=== PATIENT | female | born 1965 | race Caucasian/White ===

== ENCOUNTER 2019-04-29 05:19 | Observation (INO) | payer BC ==
[2019-04-28 11:25] LABS: BASOPHILS % 0.5 % (0.0-1.0); EOSINOPHILS # (AUTO) 0.2 (0.0-0.4); EOSINOPHILS % 2.2 % (0.0-6.0); HEMATOCRIT 40.4 % (34.2-44.1); HEMOGLOBIN 13.1 g/dL (12.0-16.0); LYMPHOCYTES # (AUTO) 2.7 (1.0-3.2); LYMPHOCYTES % 34.4 % (18.0-39.1); MEAN CORPUSCULAR HGB CONC 32.4 g/dL (31-35); MEAN CORPUSCULAR VOLUME 92.7 fL (81-99); MONOCYTES # (AUTO) 0.6 (0.2-0.8); MONOCYTES % 7.8 % (4.4-11.3); NEUTROPHILS # (AUTO) 4.3 (2.1-6.9); NEUTROPHILS % 54.5 % (38.7-80.0); PLATELET COUNT 315 x10e3/uL (140-360); RED BLOOD COUNT 4.36 x10e6/uL (3.6-5.1); RED CELL DISTRIBUTION WIDTH 11.9 % (11.7-14.4)
[2019-04-28 11:55] LABS: ALANINE AMINOTRANSFERASE 26 IU/L (0-55); ALBUMIN/GLOBULIN RATIO 1.3 (0.8-2.0); ALKALINE PHOSPHATASE 78 IU/L (40-150); ANION GAP 12.1 mmol/L (8-16); BLOOD UREA NITROGEN 13 mg/dL (7-26); BUN/CREATININE RATIO 14 (6-25); CALCIUM 8.9 mg/dL (8.4-10.2); CARBON DIOXIDE 28 mmol/L (22-29); CHLORIDE 104 mmol/L (98-107); CREATININE, SERUM 0.92 mg/dL (0.57-1.11); EST GLOMERULAR FILTRATION RATE > 60 ML/MIN (60-); GLUCOSE 83 mg/dL (74-118); POTASSIUM 4.1 mmol/L (3.5-5.1); SODIUM 140 mmol/L (136-145)
[~2019-04-29] VITALS: Ht 162.6 cm; Wt 75.3 kg
[~2019-04-29 05:19] MED LIST: CALCIUM 500+D1 EACH PO; ONE DAILY COMP1 EACH PO
[2019-04-29] MEDS ORDERED: CEFAZOLIN SOD 1 GM/NS 50ML 100 ML IV ONE (06:37)
[2019-04-29] MEDS ORDERED: BUPIVACAINE 0.25% 30ML SDV INJ ONE ×2 (07:50→09:23)
[2019-04-29] MEDS ORDERED: ESTROGENS CONJUGATED VAGINAL CR 45 GM TUBE PV ONE (07:50)
[2019-04-29] MEDS ORDERED: ACETAMINOPHEN 325 MG TAB PO PRN (10:15)
[2019-04-29] MEDS ORDERED: KETOROLAC TROMETHAMINE 30 MG/ML VIAL IM PRN (10:15)
[2019-04-29] MEDS ORDERED: DIPHENHYDRAMINE HCL 25 MG CAP PO PRN (10:15)
[2019-04-29] MEDS ORDERED: PROMETHAZINE HCL (IM) 25 MG/ML VIAL IV PRN (10:15)
[2019-04-29] MEDS ORDERED: BISACODYL 5 MG TAB EC PO PRN (10:15)
[2019-04-29] MEDS ORDERED: MORPHINE SULFATE INJ 4 MG/ML INJ 1ML ONE ×2 (10:23→10:48)
[2019-04-29] MEDS: LACTATED RINGER'S 1,000 ML IV SCH ×2 (11:45→19:52)
[2019-04-29] MEDS ORDERED: PROMETHAZINE 12.5MG/ NACL 0.9% 50 ML IV PRN (11:45)
[2019-04-29 11:47] VITALS: BP 123/81
[2019-04-29 11:58] VITALS: BP 123/81
[2019-04-29] MEDS ORDERED: ACETAMINOPHEN 1000 MG/100 ML IV ONE (14:56)
[2019-04-29] MEDS ORDERED: SEVOFLURANE INHAL SOLN 250 ML PEN BTL ONE (14:56)
[2019-04-29] MEDS ORDERED: LIDOCAINE HCL 2% LOCAL INJ 5 ML SDV VIAL INJ ONE (14:56)
[2019-04-29] MEDS ORDERED: ONDANSETRON HCL INJ 2MG/ML 2ML 2 MG/ML VIAL ONE (14:56)
[2019-04-29] MEDS ORDERED: ROCURONIUM BROMIDE 10 MG/ML 5ML VIAL ONE (14:56)
[2019-04-29] MEDS ORDERED: PROPOFOL IV EMULSION 10 MG/ML 20 ML VIAL ONE (14:56)
[2019-04-29] MEDS ORDERED: DEXAMETHASONE SOD PHOS INJ 4 MG/ML VIAL ONE (14:56)
--- NOTE | 2019-04-29 16:41 | Operative Report ---
DATE OF PROCEDURE: SURGEON: Michelle Cloud MD PREOPERATIVE DIAGNOSIS: Pelvic organ prolapse. POSTOPERATIVE DIAGNOSIS: Pelvic organ prolapse. PROCEDURES: Total vaginal hysterectomy, anterior/posterior repair, sacrospinous colpopexy, bilateral salpingectomy. CERAMIC ARTIST: Dr. Garcia. COMPLICATIONS: None. ESTIMATED BLOOD LOSS: 150 mL. DESCRIPTION OF PROCEDURE: The patient was taken to the OR. General anesthesia was induced. She was prepped and draped in a normal sterile fashion, placed in dorsal lithotomy position after examination under anesthesia. A weighted speculum was placed inside the vagina. Cervix was grasped with single-tooth tenaculum. Subvaginal tissue was injected around the cervix using Marcaine with epinephrine 0.25%. A circumferential vaginal skin incision was made with a scalpel, and the bladder was dissected off the cervix using curved Contreras scissors and gentle sweeps of the Ray-Rohith wrapped on the index finger. The anterior wall of the vagina was held with two hemostats, and the vagina was dissected off the bladder using Metzenbaum scissors using the push-spread technique and opened in the midline. Anteriorly, using the same instrument, the two flaps of the vagina dissected off the underlying bladder using both sharp and blunt dissection. Gentle sweeps of Ray-Rohith wrapped on the index finger. Following this, the pouch of Escobar was opened with Metzenbaum scissor. A weighted speculum was advanced in the pouch of Escobar curved Zeppelin clamps. Using the LigaSure, the uterosacral ligaments were held, cauterized, and cut. The same was repeated on the other side. The uterine vessels were cauterized and cut using the LigaSure. Another bite was performed medially of the uterine vessels and the cautery. Using the LigaSure, the uterus fundus was clipped outside the introitus with a finger around the fundus. The anterior peritoneum was opened. Zeppelin clamps were applied at the apex of the broad ligament on each side. The uterus was freed and sent to Pathology. The pedicles were secured using transfixion suture of Vicryl #0. Bilateral salpingectomy was performed. Ovaries looked normal. Using the LigaSure, tubes were sent to Pathology. Following this, sacrospinous colpopexy was performed using the Capio needle oliveira, and the Vicryl suture was thrown into the sacrospinous ligament and the other end into the vagina. The same was repeated on the other side, and the sutures were hitched to the vaginal vault. The pubocervical ligaments were approximated using Vicryl #0, two suture were used, and the excess vaginal skin was trimmed off using curved Contreras scissors. The vagina was closed with interlocking stitches of Vicryl #0 continuous stitch, and sacrospinous colpopexy sutures were tied to the vaginal vault. The vaginal vault was lifted. Following this, posterior repair was performed where two Allis clamps applied about less than 1 cm from the introitus on each side, and the skin in between was cut using curved Contreras scissors. The vagina was dissected off the perineum using curved Contreras scissors. The vagina was dissected off the rectum and the perineum using both sharp and blunt dissection with Metzenbaum scissors and gentle sweeps of Ray-Rohith wrapped on the index finger. The levator ani were approximated on each side using Vicryl #0, two suture were used. Excess vaginal skin was trimmed off using curved Contreras scissors, and the vagina was closed with interlocking sutures of Vicryl #0. The plane was approximated using Vicryl 2-0 subcu. Rectal exam was intact. Casarez catheter was inserted and showed clear urine. Vaginal pack was inserted. The patient tolerated the procedure well. Lap, instruments, and needle counts were correct x2 at the end of the procedure. Michelle Cloud MD DD/SADE /[id number]
[2019-04-29 16:42] VITALS: BP 115/76
[2019-04-29] MEDS: MEPERIDINE HCL INJ 25 MG/ML VIAL IV PRN ×2 (17:05→21:38)
--- NOTE | 2019-04-29 19:00 | NUR ---
Received the patient in report.lyeing in the bed.no pain voiced.stable condition.
[2019-04-29] MEDS ORDERED: MIDAZOLAM HCL 2 MG/2 ML VIAL ONE (19:07)
[2019-04-29] MEDS ORDERED: FENTANYL CITRATE/PF 100MCG/2 ML INJ ONE (19:07)
[2019-04-29 20:00] VITALS: BP 99/59
[2019-04-29 20:21] VITALS: BP 100/60
[2019-04-29] MEDS: ZOLPIDEM TARTRATE 5 MG TAB PO PRN (22:21)
[2019-04-30] VITALS (8 sets, daily range): BP systolic 94–129; BP diastolic 52–80
--- NOTE | 2019-04-30 00:20 | NUR ---
Casarez care given.comfortably resting well.
[2019-04-30] MEDS: LACTATED RINGER'S 1,000 ML IV SCH ×3 (04:57→20:26)
[2019-04-30 05:36] LABS: HEMATOCRIT 34.7 % (34.2-44.1); HEMOGLOBIN 11.5 g/dL (12.0-16.0)
--- NOTE | 2019-04-30 07:07 | NUR ---
BED SIDE SHIFT REPORT GIVEN TO ONCOMING RN.STABLE CONDITION.
[2019-04-30] MEDS: MEPERIDINE HCL INJ 25 MG/ML VIAL IV PRN ×4 (07:46→21:07)
--- NOTE | 2019-04-30 10:34 | NUR ---
Removed vaginal packing and emerson. Patient tolerated procedure well. No bleeding noted at removal. pads and mesh undies provided for pateints comfort. Patients daughter is in the shower so she will go clean up and dress after her daughter gets out.
--- NOTE | 2019-04-30 11:41 | NUR ---
Went to [facility] and cleaned up without difficulty. States she has back pain, wants IV meds not IM or PO meds. Will give as ordered. Patient seems to have some memory problem or slow mentation because she seems to ask the same questions over and over. Both her and her daughter at bedside ask for prescriptions for pain meds for the patient at discharge each time I go in to see the patient . Reassured the MD will know that they are asking for pain med scripts
--- NOTE | 2019-04-30 19:00 | NUR ---
Received the patient in report.lyeing in the bed.no pain voiced.tolerates the diet.vag.bleeding spot noted.bed locked an din lowest position.phone and call light within reach.instructed to call for assistance as needed.passes gas .no bowelmovement.
[2019-04-30] MEDS: ZOLPIDEM TARTRATE 5 MG TAB PO PRN (21:43)
[2019-05-01 01:08] VITALS: BP 121/59
[2019-05-01] MEDS: LACTATED RINGER'S 1,000 ML IV SCH ×2 (04:00→12:58)
[2019-05-01 05:10] VITALS: BP 105/69
[2019-05-01] MEDS: MEPERIDINE HCL INJ 25 MG/ML VIAL IV PRN ×2 (06:25→11:35)
--- NOTE | 2019-05-01 06:54 | NUR ---
BED SIDE SHIFT REPORT GIVEN TO ONCOMING RN.STABLE CONDITION.
[2019-05-01 08:13] VITALS: BP 109/61
[2019-05-01 08:36] VITALS: BP 109/61
[2019-05-01 12:33] VITALS: BP 106/61
[2019-05-01] MEDS ORDERED: TYLENOL WITH C1 EACH PO (15:43)
[2019-05-01] MEDS ORDERED: MIRALAX17 GM (15:44)
[2019-05-01 16:49] VITALS: BP 99/65
== END 2019-05-01 17:00 | disposition home or self-care (01) ==
LOC: OR 05:19 → PACU V 10:47 → MED/SURG 11:05
PROVIDERS: ADMIT Obstetrics & Gynecology; ATTEND Obstetrics & Gynecology
DX: N81.89 Other female genital prolapse (principal); Z01.812 Encounter for preprocedural laboratory examination; Z01.818 Encounter for other preprocedural examination; R05 Cough
CPT/HCPCS: 36415 ×2; 57260; 58262; 80053; 84702; 85014; 85018; 85025; 86850; 86900; 88305; 93005; G0378 ×3; J0131; J0690; J1100; J1885; J2001; J2175 ×3; J2250; J2270; J2405; J2550; J2704; J3010; J7121 ×2; 88307

== ENCOUNTER → 2021-01-05 | Outpatient (CLI) | payer BC ==
[~2021-01-05] MED LIST changes: +MIRALAX17 GM; +TYLENOL WITH C1 EACH PO
== END ==
LOC: MAMMO 09:57
PROVIDERS: ATTEND Internal Medicine
DX: Z12.31 Encounter for screening mammogram for malignant neoplasm of breast (principal)
CPT/HCPCS: 77067

== ENCOUNTER → 2022-05-30 | Outpatient (CLI) | payer OTHER | LOC: MAMMO 10:52 | PROVIDERS: ATTEND Internal Medicine | DX: Z12.31 Encounter for screening mammogram for malignant neoplasm of breast (principal) | CPT/HCPCS: 77067 ==

== ENCOUNTER → 2024-09-03 | Outpatient (REF) | payer OTHER | LOC: MAMMO 14:45 | PROVIDERS: ATTEND Internal Medicine | DX: Z12.31 Encounter for screening mammogram for malignant neoplasm of breast (principal) | CPT/HCPCS: 77067 ==